=== PATIENT | female | born 1975 | race Caucasian/White ===

== ENCOUNTER 2019-06-20 06:30 | Day surgery (SDC) | payer MEDICAID, SELFPAY ==
--- NOTE | 2019-06-12 08:31 | HP.PCM_ITS ---
Problem List (1) Abnormal uterine bleeding (AUB) Status: Acute History and Physical Date of Admission: 06/20/19 Nelda Reed Physician [employer] H&P Signed Encounter Date: 06/12/2019 Expand All Collapse All Hide copied text Hover for details Kathryn Ellis is a 44 year old female who presents for abnormal uterine bleeding. Patient reports has suffered with abnormal bleeding recently getting worse. Patient reports has been on her period for the last 3 weeks. Patient has tried previously Mirena IUD and Depo-Provera. Patient reports she did have menstrual cessation with the Depo-Provera did not like the side effects. Patient declines any further hormonal treatment at this time. Patient has a history of an E sure for tubal ligation and is requesting an ablation at this time. Patient does take thyroid medication but is well controlled. ? PAST?MEDICAL?HISTORY PAST MEDICAL HISTORY Diagnosis Date ? Abnormal glandular Papanicolaou smear of cervix 1994 ? Abn. Pap smear (cervix)- ? Abnormal Pap smear 2007 ? ASCUS/ALEXANDRE--endometrial bx benign ? Allergic rhinitis, cause unspecified ? ? Allergic rhinitis ? Other postablative hypothyroidism 1999 ? Tobacco use disorder 08/14/2015 ? PAST?SURGICAL?HISTORY PAST SURGICAL HISTORY Procedure Laterality Date ? CERVIX UTERI CAUTER CRYOCAUTER ? 1994 ? D&C, DIAG AND/OR THERAPEUTIC ? 1994 ? Dilation & curettage ? ENDOMETRIAL BIOPSY ? 2007 ? EMB/ECC ? INSERTION OF IUD ? 05/21/2015 ? PAST SURGICAL HISTORY OF ? ? ? ears for tubes and hole in ear drum, right ear graft ? REM LESION FACE,EAR,EYEL <5MM ? 03/15/06 ? Excision right cheek and epigastric lesions ? TUBAL LIGATION HX ? 2009 ? FAMILY?HISTORY FAMILY HISTORY Problem Relation Age of Onset ? Headache Mother ? ? Cancer Father ? ? luekemia ? No Known Problems Brother ? ? No Known Problems Brother ? ? No Known Problems Brother ? ? Hypertension Maternal Grandmother ? ? Lipids Maternal Grandmother ? ? Breast Cancer Maternal Grandmother 87 ? other (accident) Paternal Grandfather ? ? No Known Problems Son ? ? SOCIAL?HISTORY Social History Socioeconomic History Marital status: Single Spouse name: Not on file Number of children: 1 Years of education: 12 Highest education level: Not on file Occupational History Occupation: LABOR Employer: [employer] Social Needs Financial resource strain: Not on file Food insecurity: Worry: Not on file Inability: Not on file Transportation needs: Medical: Not on file Non-medical: Not on file Tobacco Use Smoking status: Current Every Day Smoker Packs/day: 0.50 Years: 16.00 Pack years: 8 Types: Cigarettes Smokeless tobacco: Never Used Substance and Sexual Activity Alcohol use: Yes Comment: Occasionally Drug use: No Sexual activity: Yes Partners: Male control/protection: Tubal Ligation Comment: ESSURE Lifestyle Physical activity: Days per week: Not on file Minutes per session: Not on file Stress: Not on file Relationships Social connections: Talks on phone: Not on file Gets together: Not on file Attends christianity service: Not on file Active member of club or organization: Not on file Attends meetings of clubs or organizations: Not on file Relationship status: Not on file Intimate partner violence: Fear of current or ex partner: Not on file Emotionally abused: Not on file Physically abused: Not on file Forced sexual activity: Not on file Other Topics Concerns: Service: No Blood Transfusions: Not Asked Caffeine Concern: Not Asked Occupational Exposure: Not Asked Hobby Hazards: Not Asked Sleep Concern: No Stress Concern: Not Asked Weight Concern: No Special Diet: No Back Care: Not Asked Exercise: No Bike Helmet: Not Asked Seat Belt: Not Asked Self-Exams: Yes Social History Narrative Lives with son No pets ? CURRENT?MEDICATIONS ? Current Outpatient Medications: norethindrone (AYGESTIN) 5 mg tablet Take 1 tablet by mouth as directed. 1 tablet 3 times daily until bleeding stops then twice daily for 2 days then 1 tablet daily for 2 days. levothyroxine (SYNTHROID) 125 mcg tablet Take 1 tablet by mouth once daily. Take on empty stomach ibuprofen (MOTRIN) 600 mg tablet Take 1 tablet by mouth every 6 hours as needed. FOR PAIN. ? No current facility-administered medications for this visit. Allergies As of Date: 06/12/2019 Allergen Noted Reaction HAYFEVER [HOMEOPATHIC PRODUCTS] 10/27/2005 SULFA (SULFONAMIDE ANTIBIOTICS) 10/27/2005 ? Fully Assessed 06/12/2019 ? ? REVIEW OF SYSTEMS Abdomen: no pain Bladder: no dysuria .. Expanded ROS: GENERAL: Negative for fever Allergies and current medication updated:Yes ? EXAM: BP 96/56 Ht 5' 3 (1.60m) Wt 113 lb (51.3kg) BMI 20.02 kg/(m^2). ? GENERAL: pleasant, female in no apparent distress HEENT: Normocephalic, atraumatic, mucus membranes moist and no lesions NECK: Supple, full range of motion, no adenopathy and thyroid normal DERMATOLOGY: Normal, without lesions, non-icteric and non-hirsute CARDIAC: Regular rate and rhythm CHEST: Clear to auscultation Normal inspiratory effort ABDOMEN: Deferred PELVIC: deferred BIMANUAL: deferred NEURO: alert and oriented x3,exam grossly non-focal EXTREMITIES: normal ? ASSESSMENT AND PLAN: Encounter Diagnosis ? ? ICD-10-CM ? 1. Abnormal uterine bleeding (AUB) N93.9 ? ? 2. Pt has been counseled on risks/benefits and alternatives of surgery including but not limited to anesthesia, bleeding, infection, injury to pelvic structures including bowel, bladder, and vessels. Pt wishes to proceed with surgery at this time. 3. Endometrial biopsy was benign 4. Ultrasound was reviewed from 2016 ? Nelda Purvis MD ?
[2019-06-20] VITALS (8 sets, daily range): BP systolic 95–108; BP diastolic 53–76; PULSE 61–72; RESP 16; TEMP 36.4–36.7; O2SAT 96–100; BMI 19.5
[2019-06-20 06:57] LABS: Internal QC Validated? YES +Cl - CLEAR BKGD; Pregnancy, Urine Negative Negative
[2019-06-20 06:59] LABS: Hematocrit 38.2 % (37-47); Hemoglobin 12.8 g/dL (12.0-15.0); Mean Corp Hgb Conc 33.5 g/dL (32-36); Mean Corpuscular Hgb 30.5 pg (27.0-32.0); Mean Platelet Vol. 9.8 fl (6.2-12.0); Platelet Count 311 K/mm3 (150-450); RBC Distribution Width CV 13.2 % (11.6-14.6); RBC Distribution Width SD 43.8 fl (35.1-43.9); White Blood Count 7.4 K/mm3 (4.4-11.0)
[2019-06-20] MEDS: Lactated Ringers 1,000 ML 150 ML IV (07:30)
--- NOTE | 2019-06-20 08:20 | EMB_PTH ---
PATIENT: CHRISSIE ANDRADE LOC: [facility] [place] U#:[id number] AGE/SX: 44/F ROOM: RE06/20/[address]: Dr. Nelda Purvis, MDDOB: 1975 BED: DIS: 06/20/2019 SPEC #: [id number] RECD: 06/20/19 10:53 STATUS: CRISTAL CARMINE #: [id number] MIRNA: 06/20/19 08:[address]: Nelda Purvis DEPT: SURGICAL PATHOLOGY RECD BY: Norbert Maradiaga ENTERED: 06/20/19 11:15 SP TYPE: ENDOM BX/C OTHR DR: Dr. Issac Ma III, MD Tissues: Endometrium, NOS Procedures: Surgery Specimen Level IV HEADER OPERATION: Hysteroscopy, Cintia, ablation PRE-OP DIAGNOSIS: Abnormal uterine bleeding TISSUE SUBMITTED: Endometrial curettings and endometrial polyps MICROSCOPIC DIAGNOSIS Endometrial curettings and endometrial polyps: Secretory endometrium. Fragments of polyp, consistent with atypical polypoid adenomyoma. Negative for malignancy. IRA:brooklyn 06/21/19 COMMENT Case has been reviewed in consultation with Dr. Monge who concurs with the above diagnosis. IDC:AM MICROSCOPIC DESCRIPTION Slides are reviewed. GROSS DESCRIPTION Received in fixative is one container labeled with the patient's name and designated endometrial curettings and endometrial polyps. The specimen consists of multiple fragments of pink hemorrhagic soft tissue that in aggregate measure 3 x 2.5 x 0.3 cm. Also present in the container are two pieces of nicholas-pink polyp measuring 1.5 x 1 x 0.5 cm and 1 x 0.5 x 0.4 cm. Both pieces are bisected. The entire specimen is submitted in two cassettes as follows: 1 - hemorrhagic soft tissue, 2 - polyps. / IRA:brooklyn 06/20/19 TC:5 CPT: 81714 ADDENDUM ADDENDUM ADDENDUM ADDENDUM ADDENDUM 06/25/2019 11:37 ADDENDUM 06/25/2019 11:37 ADDENDUM 06/25/2019 11:37 ADDENDUM 06/25/2019 11:37 ADDENDUM 06/25/2019 11:37 The lesion, atypical polypoid adenomyoma, is a benign tumor with a possibility of recurrence if it is not completely removed. The case is discussed with Dr. Purvis on 06/25/2019. Clinical correlation and appropriate followup are necessary.
--- NOTE | 2019-06-20 08:42 | OP.PCM_ITS ---
Problem List (1) Abnormal uterine bleeding (AUB) Status: Acute Report of Operation Date of Procedure: 06/20/19 Pre-Operative Diagnosis: AUB Post-Operative Diagnosis: AUB, Endometrial polyps Surgery/Procedure Performed:: Hysteroscopy, D&C, Polypectomy, Cintia Endometrial ablation Description of Surgical Findings:: Uterus sounded to 8 cm endocervical canal 4 cm. On hysteroscopy there were polyps appreciated. They were easily removed with sharp curettage endometrial polyps and endometrial curettings sent to pathology. Cintia ablation performed without difficulty. Type of Anesthesia:: MAC Specimen's removed: Endometrial polyps, Endometrial Curettings Drains: none Estimated Blood Loss (mL): <5cc Fluids Replaced: 700 Description of Procedure: After informed consent was obtained patient taken to the operating room she is placed in supine position she is given anesthesia simply self insert she is prepped draped normal sterile fashion. Bladder was drained prior to the start of the procedure. At this time the weighted speculum was placed the posterior fornix of the vagina then a single-tooth tenaculum was used to grasp the anterior lip of the cervix. At this time the uterus was sounded to approximately 8 cm the endocervical canal sounded to 4 cm. Next cervix was dilated in incremental fashion. Once adequate dilatation was achieved the hysteroscope was inserted using normal saline as distention medium. On hysteros copy there were multiple large polyps. At this time sharp curettage was performed which yielded polypoid tissue and small amount of endometrial tissue. tissue will be sent to pathology for evaluation. Hysteroscope was then reinserted and all the polyps were removed. Cavity was still intact. At this time the Cintia device was opened. The Cintia was set at 4 cm. The device was activated. Prior to activation the field test was performed and cavity was intact. The device was then fired and activated for 120 seconds. Once the 120 seconds was completed the device was removed intact and the tenaculum was removed. Good hemostasis was appreciated. Weighted speculum was removed. Vaginal sweep was performed is negative. There were no complications. Anticipated normal postoperative course for this patient. Instrument and lap count were correct ?2. Grafts/Implants Used: none - Complications none - Admit VTE Documentation VTE Present on Admission: Yes VTE Mechan Device Prophylaxis: SCD's VTE Pharm Prophylaxis ordered?: No
--- NOTE | 2019-06-20 08:47 | DCINST_ITS ---
Discharge Diet: No Restrictions Discharge Activity: Return to Normal Activity, May Shower, May Take a Tub Bath - in 2 weeks. May resume sexual activity in: 2 weeks Call your doctor if you observe: Fever of 101 or Higher, Using more than one pad per hour, Uncontrolled pain Allergies/Adverse Reactions: Allergies Sulfa (Sulfonamide Antibiotics) Allergy (Verified 06/13/19 07:57) Unknown Medications to take at Discharge Levothyroxine [Synthroid] 125 mcg PO DAILY 02/03/14 Orders to be completed after discharge: CBC-Complete Blood Cnt No Diff Time Frame: 06/20/19, Facility: [facility], Location: Laboratory ,Urine Time Frame: 06/20/19, Facility: [facility], Location: Laboratory Primary Care Physician: Issac Ma III, MD [Primary Care Provider] - Test Results: Test results from this visit will be discussed in further detail at your follow- up appointment, if applicable. Please Follow Up With: Nelda Purvis MD When: as scheduled
== END 2019-06-20 09:35 | disposition home or self-care (01) ==
LOC: SDC 06:32 → AC 06:37
PROVIDERS: Family Provider Family Medicine; PCP Family Medicine; Referring Provider Obstetrics & Gynecology; Visit Provider Obstetrics & Gynecology
PROC: 0U5B8ZZ Destruction of Endometrium, Via Natural or Artificial Opening Endoscopic (ICD-10-PCS; CPT 58558; principal; 2019-06-20 08:10)
DX: N84.0 Polyp of corpus uteri (principal); D26.1 Other benign neoplasm of corpus uteri; N93.9 Abnormal uterine and vaginal bleeding, unspecified; E89.0 Postprocedural hypothyroidism; F17.210 Nicotine dependence, cigarettes, uncomplicated; Z88.2 Allergy status to sulfonamides
CPT/HCPCS: 58563; 36415; 81025; 85027; 88305; J7120; J2405